=== PATIENT | female | born 1960 | race Caucasian/White ===

== ENCOUNTER 2018-12-23 10:00 | Outpatient (CLI) | payer MEDICAID | END 2018-12-23 10:01 | disposition home or self-care (01) | LOC: RAD 10:00 ==

== ENCOUNTER 2019-02-03 09:28 | Outpatient (CLI) | payer MEDICAID | END 2019-02-03 09:29 | disposition home or self-care (01) | LOC: RAD 09:28 ==

== ENCOUNTER 2019-02-21 08:19 | Day surgery (SDC) | payer MEDICAID ==
[2019-02-15 13:50] VITALS: BMI 39.4
[2019-02-21 09:12] LABS: BASO # 0.01 K/mm3 (0.0-2.0); BASO % 0.2 % (0.0-3.0); EOS # 0.1 (0.0-0.7); LYMPH # 2.2 (1.2-3.4); LYMPH % 37.2 % (22.0-35.0); MEAN CELL VOLUME 84.2 fl (80.0-105.0); MEAN CORPUSCULAR HEMOGLOBIN 27.2 pg (25.0-35.0); MEAN CORPUSCULAR HGB CONC 32.3 g/dl (31.0-37.0); MEAN PLATELET VOLUME 10.5 fl (7.0-11.0); MONO # 0.4 (0.1-0.6); MONO % 7.5 % (1.0-6.0); RBC 5.14 10^6/uL (3.5-6.1); RED CELL DISTRIBUTION WIDTH 12.9 % (11.5-14.5); WHITE BLOOD COUNT 5.9 10^3/uL (4.5-11.0)
[2019-02-21 09:20] LABS: BLOOD UREA NITROGEN 11 mg/dL (7-21); CALCIUM 9.6 mg/dL (8.4-10.5); GFR NON-AFRICAN AMERICAN > 60; PARTIAL THROMBOPLASTIN TIME 27.2 Seconds (26.9-38.3); PROTHROMBIN TIME 11.3 SECONDS (9.4-12.5)
[2019-02-21] MEDS ORDERED: Midazolam 2 MG/2 ML VIAL ONE (11:13)
[2019-02-21] MEDS ORDERED: Midazolam 2 MG/2 ML VIAL IVP ONE (11:25)
[2019-02-21] MEDS ORDERED: Oxycodone/Acetaminophen 5/325 mg Tab PO PRN (11:48)
[2019-02-21] MEDS ORDERED: Sodium Chloride 0.45% 1,000 ML IV SCH (12:00)
[2019-02-21 12:38] VITALS: PULSE 81; RESP 18; TEMP 97.8; O2SAT 93
[2019-02-21 12:59] VITALS: BP 116/58
--- NOTE | 2019-02-21 17:43 | US ---
PROCEDURE: Ultrasound-guided right thyroid fine needle aspiration biopsy. CLINICAL HISTORY: Goiter with multiple nodules. Dominant 3.2 cm right thyroid nodule. Evaluate for malignancy PHYSICIAN(S): Miguel Angel Weber M.D. TECHNIQUE: The relative risks and indications for the procedure were explained to the patient and consent obtained. The patient was placed supine on the stretcher with the neck extended and preliminary sonography of the thyroid performed. This reveal multiple bilateral nodules, greater on the right than the left. There is a dominant 3.2 cm nodule on the right superiorly. The neck was prepped and draped in the usual sterile fashion. Conscious sedation and monitoring were provided throughout the procedure by a nurse. 1% Xylocaine was used to anesthetize the skin and soft tissues at the access site. Three passes with a 22-gauge needle were performed under ultrasound guidance for fine needle aspiration of the 3.2 cm hypoechoic nodule nodule in the right thyroid. The slides were reviewed by pathology and deemed adequate. The patient tolerated the procedure well. IMPRESSION: 1. Ultrasound guided fine needle aspiration of a 3.2 cm dominant right thyroid nodule
== END 2019-02-21 13:34 | disposition home or self-care (01) ==
LOC: SDS 08:19
PROVIDERS: ATTEND Radiology Vascular & Interventional Radiology
DX: E04.1 Nontoxic single thyroid nodule (principal); I10 Essential (primary) hypertension
CPT/HCPCS: 10005; 36415; 80048; 85025; 85610; 85730; 88173; 88305; J2250; J2405; J3010; J7030